=== PATIENT | male | born 1970 | race Caucasian/White ===

== ENCOUNTER → 2018-01-07 | Outpatient (CLI) | payer OTHER ==
--- NOTE | 2018-01-07 14:11 | RAD ---
DATE: 01/07/2018 EXAM: DIGITAL DIAGNOSTIC BILATERAL, BREAST BILATERAL HISTORY: Pain and swelling behind both nipples COMPARISON: Baseline study This study was interpreted with the benefit of Computerized Aided Detection (CAD). Breast Density: SCATTERED The breast parenchyma shows scattered fibroglandular densities. Breast parenchyma level B. FINDINGS: There are heterogeneous fibroglandular densities in the retroareolar regions bilaterally. No discrete breast mass is seen. No microcalcifications are evident. The appearance is most compatible with gynecomastia. Bilateral breast ultrasound, 01/07/2018: The retroareolar regions were carefully scanned bilaterally. There is hypoechoic, vascular tissue present bilaterally in a triangular configuration. No discrete breast mass is seen. Correlation with the mammograms suggest that this represents gynecomastia. IMPRESSION: Bilateral gynecomastia. Clinical surveillance is suggested. BI-RADS CATEGORY: 2 BENIGN FINDING(S) RECOMMENDED FOLLOW-UP: CLIN FOLLOW UP IMAGING CLINICALLY INDICATED PQRS compliance statement: Patient information was entered into a reminder system with a target due date for the next mammogram. Mammography is a sensitive method for finding small breast cancers, but it does not detect them all and is not a substitute for careful clinical examination. A negative mammogram does not negate a clinically suspicious finding and should not result in delay in biopsying a clinically suspicious abnormality. "Our facility is accredited by the [employer] Mammography Program."
== END | disposition home or self-care (01) ==
LOC: MAMMO 12:40
DX: N64.4 Mastodynia (principal)
CPT/HCPCS: 76641; 77066